=== PATIENT | male | born 1990 | race African-American/Black ===

== ENCOUNTER → 2016-05-29 | Outpatient (CLI) | payer OTHER | LOC: M OUTALCOH 09:21 | PROVIDERS: ATTEND Psychiatry & Neurology Psychiatry | DX: Z03.89 Encounter for observation for other suspected diseases and conditions ruled out (principal) ==

== ENCOUNTER 2016-06-07 09:00 | Outpatient (RCR) | payer OTHER | END 2016-06-12 | LOC: M OUTALCOH 09:00 | PROVIDERS: ATTEND Psychiatry & Neurology Psychiatry | DX: Z03.89 Encounter for observation for other suspected diseases and conditions ruled out (principal) ==

== ENCOUNTER → 2018-02-18 | Outpatient (REF) | LOC: M SMT 14:41 | DX: Z02.71 Encounter for disability determination (principal) ==

== ENCOUNTER 2018-10-25 11:53 | Inpatient (IN) | payer OTHER, SELFPAY ==
[~2018-10-25] VITALS: Ht 167.6 cm; Wt 53.7 kg
[2018-10-25] MEDS ORDERED: VENL37.598 PO (13:10)
[2018-10-25 14:04] LABS: AMPHETAMINES LEVEL URINE NEGATIVE (NEGATIVE); BARBITURATES URINE NEGATIVE (NEGATIVE); BENZODIAZEPINES URINE NEGATIVE (NEGATIVE); CANNABINOIDS URINE POSITIVE (NEGATIVE); COCAINE METABOLITE URINE NEGATIVE (NEGATIVE); METHADONE URINE NEGATIVE (NEGATIVE); OPIATES URINE NEGATIVE (NEGATIVE); PHENCYCLIDINE URINE NEGATIVE (NEGATIVE)
[2018-10-25 14:10] LABS: HEMATOCRIT 43.5 % (42.0-52.0); HEMOGLOBIN 14.6 g/dl (13.5-17.5); MEAN CORPUSCULAR HEMOGLOBIN 31.9 pg (27.0-33.0); MEAN CORPUSCULAR HGB CONC 33.6 g/dl (32.0-36.5); MEAN CORPUSCULAR VOLUME 95.2 fl (80.0-96.0); PLATELET COUNT, AUTOMATED 125 10^3/uL (150-450); RED BLOOD COUNT 4.57 10^6/uL (4.30-6.10)
[2018-10-25 14:46] LABS: ACETAMINOPHEN LEVEL < 2.0 UG/ML (10.0-30.0); ALBUMIN 3.6 GM/DL (3.2-5.2); ALT/SGPT 16 U/L (12-78); BILIRUBIN,DIRECT < 0.1 MG/DL (0.0-0.2); BILIRUBIN,TOTAL 0.3 MG/DL (0.2-1.0); BLOOD UREA NITROGEN 9 MG/DL (7-18); CALCIUM LEVEL 8.8 MG/DL (8.5-10.1); CARBON DIOXIDE LEVEL 26 MEQ/L (21-32); CHLORIDE LEVEL 107 MEQ/L (98-107); CREATININE FOR GFR 0.94 MG/DL (0.70-1.30); ETHYL ALCOHOL (ETHANOL) < 0.003 % (0.000-0.010); GLOMERULAR FILTRATION RATE > 60.0 (>60); GLUCOSE, FASTING 89 MG/DL (70-100); SALICYLATE LEVEL 2.1 MG/DL (5.0-30.0); SODIUM LEVEL 141 MEQ/L (136-145); THYROID STIMULATING HORMONE 0.689 uIU/ML (0.358-3.740); TOTAL PROTEIN 7.2 GM/DL (6.4-8.2)
[2018-10-26] MEDS ORDERED: VENLAFAXINE **XR** 37.5 MG CAPSULE PO ONE (11:00)
[2018-10-27] MEDS ORDERED: VENLAFAXINE **XR** 37.5 MG CAPSULE PO ONE (11:00)
[2018-10-27] MEDS ORDERED: ACETAMINOPHEN TAB 650MG DOSE (2X325MG) PO PRN (12:15)
[2018-10-27] MEDS ORDERED: traZODone 50 MG TAB PO PRN (12:15)
[2018-10-27] MEDS ORDERED: MOM 30ML SUSPENSION UDC PO PRN (12:15)
[2018-10-27] MEDS ORDERED: MAALOX 30 ML SUSP *UDC PO PRN (12:15)
[2018-10-27 12:51] VITALS: BP 153/88
[2018-10-27] MEDS: NICOTINE 21MG/24HR 1 EA TRANSDERMAL TD SCH (13:00)
--- NOTE | 2018-10-27 21:29 | HPEPDOC ---
General Date of Admission Oct 27, 2018 at 12:03 Date of Service: Oct 27, 2018 Chief Complaint The patient is a 28-year-old male admitted with a reason for visit of Suicidal Ideation. Source: Patient Exam Limitations: No limitations Timing/Duration: Day(s) Severity: Moderate Associated Symptoms: Denies Symptoms History of Present Illness This is a 28-year-old male presented himself for physical evaluation for his admission to the mental health unit. He has been placed in the mental health unit due to suicidal ideation and depression. Home Medications Scheduled Venlafaxine HCl (Venlafaxine HCl ER) 37.5 Mg Cap.er.24h, 37.5 MG PO DAILY, (Reported) Allergies Coded Allergies: No Known Allergies (Unverified , 10/25/18) Past Medical History Medical History The patient denies any history of medical problems. Further conversation reveals that he does have scoliosis. He's never had any treatment or surgery for it. Family History Patient reports that his father is from gunshot. His mother is alive and healthy. Social History * Smoker: current smoker (2-3 cigarettes per day) Alcohol: Denies Drugs: marijuana (states he smokes 3-4 times per day) Recent Travel/Sick Contacts: Denies: Recent travel, Recent sick contacts Psychosocial History: Depression, Suicidal thoughts The patient receives SSI for his scoliosis. A-FIB/CHADSVASC A-FIB History Current/History of A-Fib/PAF?: No Current PO Anticoag Therapy: No Review of Systems Other systems Review of 10 systems is otherwise negative except as stated in the brief presentation Physical Examination General Exam: Positive: Alert, Cooperative, No Acute Distress Eye Exam: Positive: PERRLA, Conjunctiva & lids normal ENT Exam: Positive: Atraumatic, Mucous membr. moist/pink, Pharynx Normal, Other ENT (the patient has poor dentition) Neck Exam: Positive: Supple; Negative: JVD, thyromegaly, +2 carotid pulse wo bruit, Lymphadenopathy, Other Chest Exam: Positive: Clear to auscultation, Normal air movement; Negative: Rales, Rhonchi, Wheezing, Diminished, Other Heart Exam: Positive: Rate Normal, Regular Rhythm, Normal S1, Normal S2; Negative: Murmurs, Rubs Abdomen Exam: Positive: Normal bowel sounds, Soft; Negative: Tenderness, Hepatospenomegaly Extremity Exam: Positive: Normal pulses, Other (he hasn't overall thin body habitus); Negative: Clubbing, Cyanosis, Edema Skin Exam: Positive: Nl turgor and temperature; Negative: Breakdown, Lesion Neuro Exam: Positive: Normal Gait, Normal Speech, Strength at 5/5 X4 ext, Normal Tone, Sensation Intact, Cranial Nerves 3-12 NL, Reflexes 2+ Psych Exam: Positive: Oriented x 3, Other (affect is appropriate) Vital Signs Vital Signs Date Time Temp Pulse Resp B/P (MAP) Pulse Ox O2 Delivery O2 Flow Rate FiO2 10/27/18 12:51 98.3 65 20 153/88 (109) 97 10/27/18 12:24 Room Air Assessment/Plan This is a 28-year-old male admitted to the mental health unit for depression and suicidal ideation. He is in the appropriate place to be taken care of. He does not have any acute or chronic medical problems that require monitoring or intervention. We will sign off; please do not hesitate to reconsult us if an acute medical issue arises. Plan / VTE VTE Prophylaxis Ordered?: No VTE Exclusion Mechanical Proph: Low Risk for VTE VTE Exclusion Pharmacological: At Low Risk for VTE Plan Diet: Continue Current Activity: Encourage Ambulation Anticipated Discharge: Home MNASOOR MCCARTY MD Oct 27, 2018 21:29
[2018-10-28 06:44] VITALS: BP 106/62
[2018-10-28] MEDS: NICOTINE 21MG/24HR 1 EA TRANSDERMAL TD SCH (09:00)
[2018-10-28] MEDS: VENLAFAXINE **XR** 37.5 MG CAPSULE PO SCH (10:04)
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
[2018-10-28 18:09] VITALS: BP 134/72
[2018-10-29 06:20] VITALS: BP 111/78
[2018-10-29] MEDS: VENLAFAXINE **XR** 37.5 MG CAPSULE PO SCH (08:36)
[2018-10-29] MEDS: NICOTINE 21MG/24HR 1 EA TRANSDERMAL TD SCH (09:00)
[2018-10-29] MEDS ORDERED: NICO21PAT TD (10:16)
--- NOTE | 2018-10-29 10:30 | MHDSPDOC ---
[facility] Discharge Summary Discharge Summary DATE OF ADMISSION: Oct 27, 2018 at 12:03 DATE OF DISCHARGE: 10/29/18 Discharge Barbra Oliver Age 28 Male Date of : 1990 Date of Service: 10/29/2018 Diagnoses Adjustment disorder, mild. Cannabis use disorder, severe. Tobacco use disorder, severe. History of Present Illness The patient, a 28-year-old man was brought in to [facility]'s emergency room after he had reportedly made suicidal statements to his significant other in a text message. He was brought in and subsequently triaged. The situation was unclear with conflicting stories and he was admitted for evaluation. When the patient was met with, he described that he does have some anxiety, depression of which he sees a psychiatrist in [place] for. He reports recently moving to this area from the [place] and feels that he is enjoying it being up here. He describes that he had come into the ER "wanting to talk to someone," which appear to conflict with the initial story presented from the emergency room. He described that he wanted to go home and that he felt he could do well with weekly therapy of which he reported he was not getting with his outpatient psychiatrist. Consultants Involved Hospitalist/PCP screening Treatment and Progress On The Unit The patient was admitted to the inpatient unit after several days stay in the ER. During his period of observation, he demonstrated no suicidal or homicidal ideation, demonstrated no concerning signs or safety issues. He was observed on the inpatient unit where he requested discharge due to being essentially 3 days of observation without any suicidal statements or any safety concerns. He no longer met involuntary criteria and did not want to stay on a voluntary status. He subsequently was triaged for discharge back to his outpatient provider at [facility]. The patient was able to engage effectively in his discharge planning and his medication of venlafaxine 37.5 mg daily was continued on the unit. He demonstrated no significant problems and he was very social. Discharge Assessment The patient, a 28-year-old man with likely adjustment problem secondary to psychosocial stressors and likely significant cannabis use problems presents to the emergency room with reported suicidal statements. However, collateral sources are conflicting, although it is unclear whether he had made these statements. He was observed for several days with no concerning ideation or signs noted. His request to leave was honored as he no longer met involuntary criteria. Mental Status Examination General: Well dressed with good hygiene Speech: Spontaneous and fluid Thought processes: Linear and logical MSK: Smooth and coordinated gait, no signs of tremors or involuntary orofacial movements Thought content: Future orientated Abstract reasoning, and computation: Intact Description of associations: Intact Description of abnormal or psychotic thoughts: Denies any suicidal or homicidal ideation. Denies any auditory or visual hallucinations. Does not appear to be responding to internal stimuli. Does not appear to be endorsing any bizarre or paranoid ideation. Judgment: fair Insight: fair Orientation: Alert and orientated 3 Cognition: Grossly normal Recent and remote memory: Intact Attention span and concentration: Intact Fund of knowledge: Adequate Mood: "okay" Affect: Euthymic with a full range Follow Up The social work team worked during the predischarge meeting in order to evaluate for further issues of lethality address them fully before discharge. They worked on safety planning with the patient's family members in order to ensure that the patient will have a safe and effective discharge. Discharge medications of venlafaxine extended release 37.5 mg daily. Time Spent The amount of time spent in the coordination of care for this patient was approximately 30 minutes. Saturday Vital Signs/I&Os Vital Signs Date Time Temp Pulse Resp B/P (MAP) Pulse Ox O2 Delivery O2 Flow Rate FiO2 10/29/18 06:20 97.0 56 18 111/78 (89) 10/27/18 12:51 97 10/27/18 12:24 Room Air Medications Scheduled Nicotine (Nicotine Patch) 21 Mg Patch.td24, 1 PATCH TD DAILY for tobacco for 30 Days, #30 Venlafaxine HCl (Venlafaxine HCl ER) 37.5 Mg Cap.er.24h, 37.5 MG PO DAILY, (Reported) Allergies Coded Allergies: No Known Allergies (Unverified , 10/25/18) PANKAJ BERNARD DO Oct 29, 2018 10:30
== END 2018-10-29 11:55 | disposition home or self-care (01) | DRG 755 ==
LOC: M ED 11:53 → M ED INP 10-27 12:03 → M PSY 10-27 12:35
PROVIDERS: ADMIT Psychiatry & Neurology Addiction Medicine; ATTEND Psychiatry & Neurology Addiction Medicine
DX: F43.20 Adjustment disorder, unspecified (principal); R45.851 Suicidal ideations; F12.90 Cannabis use, unspecified, uncomplicated; F17.210 Nicotine dependence, cigarettes, uncomplicated

== ENCOUNTER 2022-09-11 13:00 | Emergency (ER) | payer OTHER ==
[~2022-09-11] VITALS: Ht 167.6 cm; Wt 55.1 kg
[~2022-09-11 13:00] MED LIST: NICO21PAT TD; VENL37.598 PO
[2022-09-11] MEDS ORDERED: LIDOCAINE 1% MDV 20ML VIAL SC ONE (15:15)
[2022-09-11] MEDS ORDERED: BACT800T5 PO (16:02)
[2022-09-11 16:12] VITALS: BP 147/80
== END 2022-09-11 16:13 | disposition home or self-care (01) ==
LOC: M ED 13:00
DX: L02.01 Cutaneous abscess of face (principal); Z79.2 Long term (current) use of antibiotics

== ENCOUNTER 2022-10-08 09:05 | Emergency (ER) | payer OTHER ==
[~2022-10-08] VITALS: Ht 170.2 cm; Wt 55.4 kg
[~2022-10-08 09:05] MED LIST changes: +BACT800T5 PO
[2022-10-08 09:06] VITALS: BP 127/69; TEMP 97.8; O2SAT 99
== END 2022-10-08 16:56 | disposition left against medical advice (07) ==
LOC: M ED 09:05
DX: Z53.21 Procedure and treatment not carried out due to patient leaving prior to being seen by health care provider (principal)